=== PATIENT | female | born 1975 | race Hispanic/Latino ===

== ENCOUNTER → 2016-11-22 | Day surgery (SDC) | payer OTHER ==
[~2016-11-22] VITALS: Ht 160 cm; Wt 63.5 kg
[~2016-11-22] MED LIST: AMITRIPTYLINE H10 M2 PO; LUNESTA1 MG PO; MAXALT10 M1 PO; MELATONIN3 M4 PO; MYRBETRIQ50 M1 PO; PROTONIX40 M3 PO
--- NOTE | 2016-11-22 14:28 | Operative Report ---
Operative/Inv Procedure Report Surgery Date: 11/22/16 Name of Procedure: cystocele/enterocele repair with mesh, rectocele repair with Acell mesh, sling revision, cystoscopy Pre-Operative Diagnosis: cystocele grade 3-4, enterocele grade 3 and rectocele grade 2-3, urinary retention with too tight sling Post-Operative Diagnosis: same Estimated Blood Loss: 200cc Surgeon/Commercial Energy Auditor: DEA YARBROUGH MD Anesthesia: general endotracheal tube Implants: vaginal mesh Drains: 6fr galarza Specimens: urethral mesh Complications: thin tissue plains between enterocelel and cystocele Condition: stable Operative Indication: symptomatic prolapse of the vaginal organs Operative/Procedure Note Note: Operative dictation on patient Flakita Gomez. Patient was identified in the holding area and consented for cystocele repair and enterocele repair with mesh rectocele repair with mesh and possible sling revision with cystoscopy. Patient was given the risks benefits and alternatives of the surgery and all questions were answered. She had numerous questions regarding the vaginal mesh and possible complications and scar tissue from previous hysterectomy. Patient was taken to the operating placed on the operating table in supine position. Once timeout was performed and IV antibiotics were given 2 g of capsule. She was also given 400 mg of IV Cipro. Gen. anesthesia was given and the patient was placed in the dorsal lithotomy position. She was prepped and draped in the standard sterile fashion. Galarza catheter was placed at the beginning of this surgery and the bladder was drained. The Galarza was clamped and placed on the abdomen. He is a [place] retractor was 66 stays were placed to allow for excellent vaginal vault visualization. 1% lidocaine with epinephrine was infiltrated into the anterior vaginal wall for hydrodistention and hemostasis. The vaginal flaps are created taking care not to injure the bladder or the intestines. The retropubic space was entered sharply and bluntly to the sacrospinous ligament and 6 spinous process bilaterally. Once the ligaments were cleaned off the Unasyn needle bicycle taxi driver was used to place Prolene sutures into the ligaments on the right and left side. Sutures were also placed at the arcus tendineus on the patient's right and left side as well. The sutures were then used to place the Restoril vaginal mesh. The mesh was seen to be in good position in a tension-free manner. The distal portion was secured with 2-0 Vicryl the bladder neck and the proximal portion was secured to the vaginal apex. Great care was needed to dissect out the enterocele as the vaginal epithelium overlying was very thinned out. The peritoneum was entered and this was closed with a pursestring suture 2-0 Vicryl. Methylene blue 10 mL was given to check for the patency of the ureters. The cystoscopy was performed following the cystocele enterocele repair with mesh. The bladder was globally inspected and was seen to be without defect and no trabeculation or masses. Ureteral orifices were in their normal anatomic position. There was good E Deflux seen from the left ureteral orifice in the right with much more sluggish and so a 5 [place] open-ended catheter was placed without difficulty up to the kidney. The Galarza was placed back into the bladder. Attention was then turned to the sling portion of the case. The sling was palpable and felt to be likie a guitar string character. As result the sling was localized after incision was made. The vaginal flaps weare created and the sling was isolated with the right angle clamp. Care was taken not to injure the urethra. The mesh was dissected free and cut and sent to pathology. With the bladder full the patient did leak urine with Cred maneuver and as a result a new sling was placed. The Altis urethral sling was then placed on the patient's right and left side through the obturator fascia. It was in a nice tension-free manner aqfter the prolene suture was used to tighten the sling. The area was copiously irrigated with saline. Incision was closed using 3-0 running locking Vicryl suture. Attention was turned to the rectocele repair of the surgery. 1% lidocaine with epinephrine was infiltrated into the posterior vaginal wall. The vaginal flaps are created taking care not to injure the rectum. 2-0 Vicryl interrupted sutures were placed along the fascia and the a cell mesh was then placed in between the dissected free fascia and the sutures. The sutures were sequentially tied down starting from the proximal portion to the distal. The midline defect was the easily reapproximated. The perineum was wide and so this was tightened using a wedge resection and the perineal defect was corrected. Cystoscopy was performed at the end of the surgical case again to be examine the bladder and to ensure that there was no urethral injury. The sponge and needle count were correct and of the case. 2 inch vaginal packing impregnated with Premarin cream was placed into the vaginal vault. Galarza catheter was placed back into the bladder and was inflated with 10 mL of water. This was connected to a leg bag. Patient tolerated the procedure well. Findings: no mesh in urethra, bladder or vaginal fornices. Thinned out anterior vaginal wall especially at the location of the enterocele. Good bilateral ureteral efflux from both ureters. Right side was cannulated with a 5fr open ended catheter initially bc of sluggish ureteral efflux. Discharge Disposition: PACU
== END ==
LOC: STS 02:08
DX: R33.9 Retention of urine, unspecified (principal); N39.41 Urge incontinence; R32 Unspecified urinary incontinence; R35.0 Frequency of micturition; R35.1 Nocturia; N81.10 Cystocele, unspecified; N81.5 Vaginal enterocele; F17.200 Nicotine dependence, unspecified, uncomplicated; R39.89 Other symptoms and signs involving the genitourinary system
CPT/HCPCS: C1771; C1781; J0131; J0690; J0744; J2250; J2405